=== PATIENT | female | born 1950 | race Caucasian/White ===

== ENCOUNTER 2017-10-20 12:30 | Outpatient (CLI) | payer MEDICARE, BC ==
--- NOTE | 2017-10-20 16:16 | MRI ---
LEFT KNEE MRI WITHOUT IV CONTRAST: HISTORY: A 67-year-old female with left knee pain following a fall 2 weeks ago. FINDINGS: Multiplanar, multisequence MRI examination of the left knee is performed. Scattered superficial prepatellar and superficial infrapatellar subcutaneous fat stranding. This cer tainly could be consistent with prepatellar bursitis. Focal abnormal marrow signal in the proximal a nterior tibia with an appearance certainly worrisome for focal bone contusion and probably small foca l infraction. Tricompartment cartilage loss worse involving the femoral patellar and medial compartm ents. Slightly complex tear of the medial meniscus including a horizontal component and a small flap component primarily involving the posterior horn and posterior body. Small focal free-edge tear of the body of the lateral meniscus. Arthrosis changes with prominent subchondral cystic changes of the proximal tibiofibular joint with an adjacent somewhat multilobulated cyst measuring approximately 1. 1 x 1.3 x 2 cm which is both deep to and superficial to the distal biceps femoris tendon insertion. This is most likely a ganglion or complex synovial cyst. Focal dilatation or small synovial cyst at the level of the popliteal hiatus. Anterior and posterior cruciate ligaments, collateral ligament co mplexes, and quadriceps and patellar tendons and extensor mechanism show no evidence for acute proces s. IMPRESSION: Evidence for bone contusion and probable small focal infraction involving the anterior proximal tibia epiphysis and metaphysis. Slightly complex tear of the medial meniscus. Small free-edge tear of th e body of the lateral meniscus. Some superficial prepatellar fluid concerning for a possible prepate llar bursitis. Proximal tibiofibular joint arthrosis, subchondral cystic changes, and prominent mult ilobulated synovial or ganglion cyst, both superficial and deep to the biceps femoris tendon insertio n. Other findings as above. POS: OFF
== END 2017-10-20 12:31 | disposition home or self-care (01) ==
LOC: SCSMRI 12:30
PROVIDERS: ATTEND Orthopaedic Surgery
DX: M25.562 Pain in left knee (principal); S83.232A Complex tear of medial meniscus, current injury, left knee, initial encounter; S80.02XA Contusion of left knee, initial encounter

== ENCOUNTER 2017-12-01 08:17 | Outpatient (CLI) | payer MEDICARE, BC ==
[2017-12-01 09:46] LABS: #Basophils 0.1 thou/uL (0.0-0.2); #Eosinphils 0.1 thou/uL (0.0-0.7); #Lymphocytes 2.5 thou/uL (1.20-3.40); #Monocytes 0.6 thou/uL (0.11-0.59); #Neutrophils 3.4 thou/uL (1.40-6.50); %Basophils 1.8 % (0.0-1.0); %Eosinophils 1.4 % (0.0-10.0); %Lymphocytes 37.3 % (21.0-51.0); %Monocytes 8.9 % (0.0-10.0); %Neutrophils 50.7 % (42.0-75.0); Hemoglobin 13.9 g/dL (12.0-16.0); Mean Corpuscular Hemoglobin 29.8 pg (27.0-31.0); Mean Corpuscular Volume 90.3 fl (81.0-99.0); Mean Platelet Volume 8.2 fL (7.4-10.4); Platelet Count 291 thou/uL (130-400); RBC Distribution Width 11.4 % (11.5-14.5); Red Blood Cell (RBC) Count 4.66 mill/uL (4.20-5.40); White Blood Cell (WBC) Count 6.7 thou/uL (4.8-10.8)
[2017-12-01 10:04] LABS: Anion Gap 14 mmol/L (10-20); BUN (Urea Nitrogen) 16 mg/dL (9.8-20.1); Calc. Creatinine Clearance 0 mL/min (70-130); Calcium 10.5 mg/dL (7.8-10.44); Carbon Dioxide 28 mmol/L (23-31); Chloride 104 mmol/L (98-107); Estimated GFR-MDRD 71; Glucose 91 mg/dL (80-115); Potassium 4.4 mmol/L (3.5-5.1); Sodium 142 mmol/L (136-145)
--- NOTE | 2017-12-01 17:50 | EKG ---
Test Reason : Blood Pressure : / mmHG Vent. Rate : 069 BPM Atrial Rate : 069 BPM P-R Int : 178 ms QRS Dur : 086 ms QT Int : 384 ms P-R-T Axes : 031 -07 004 degrees QTc Int : 411 ms Normal sinus rhythm Normal ECG No previous ECGs available Confirmed by SARIAH FOURNIER, DR. Mosley ([id number]) on 12/01/2017 5:50:22 PM Referred By: STARR Confirmed By:DR. Dimitri ROLLE MD
== END 2017-12-01 08:18 | disposition home or self-care (01) ==
LOC: LABBT 08:17
PROVIDERS: ATTEND Orthopaedic Surgery
DX: Z01.818 Encounter for other preprocedural examination (principal); K40.90 Unilateral inguinal hernia, without obstruction or gangrene, not specified as recurrent
CPT/HCPCS: 80048; 85025; 93005; 93010

== ENCOUNTER 2017-12-04 07:24 | Day surgery (SDC) | payer MEDICARE, BC ==
[2017-12-01 09:03] VITALS: BMI 30.4
[2017-12-04] MEDS ORDERED: Diprivan 20 ML ONE (08:17)
[2017-12-04] MEDS ORDERED: CEFAZOLIN/Water 2 GM/20 ML SYRINGE ONE (08:25)
[2017-12-04] MEDS ORDERED: Fentanyl 100 MCG/2 ML VIAL ONE (09:54)
[2017-12-04] MEDS ORDERED: Lidocaine 2% w/Epinephrine 1:200K 20 ML VIAL ONE (10:16)
[2017-12-04] MEDS ORDERED: Bupivacaine PF 0.5% 30 ML VIAL ONE (10:16)
[2017-12-04] MEDS ORDERED: Bupivacaine HCl 0.5%/Epinephrine 1:200,000/PF 30 ml Vial ONE (10:16)
[2017-12-04] MEDS ORDERED: Ondansetron HCl/PF 4 MG/2 ML Vial ONE (11:14)
[2017-12-04] MEDS ORDERED: ePHEDrine/0.9% NaCl/PF SYRINGE 50 mg/10 ml ONE (11:14)
[2017-12-04] MEDS ORDERED: Ketorolac Tromethamine 30 MG/ML VIAL ONE (11:14)
[2017-12-04] MEDS ORDERED: Propofol 200 MG/20 ML VIAL ONE (11:14)
[2017-12-04] MEDS ORDERED: Lidocaine 1% PF 5 ML VIAL ONE (11:14)
--- NOTE | 2017-12-04 12:27 | OP ---
PREOPERATIVE DIAGNOSES: Medial and lateral meniscus tear, left knee. POSTOPERATIVE DIAGNOSES: Medial and lateral meniscus tear, left knee. SURGEON: Benjamin Richardson M.D. ANESTHESIA: General. BLOOD LOSS: Minimal. SPECIMEN: None. DRAINS: None. COMPLICATIONS: None. PROCEDURE IN DETAIL: The patient was taken to the operative suite where general anesthesia was induc ed. Left leg was prepped and draped in the usual sterile fashion. She received Ancef preoperatively . The scope was placed in the lateral portal and probe was placed in the medial portal. 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 Lateral compartment had no arthritis, small degenerative tear centrally. The medial compartment had grade III chondromalacia medial femoral condyle and exte nsive tearing of the medial meniscus. The ACL was intact. NARRATIVE REPORT: Scope was placed in the lateral portal and probe was placed in medial portal. I p erformed partial medial meniscectomy using basket forceps and smoothed using a 4-0 full radius resect or. I did perform abrasion chondroplasty over unstable articular cartilage flap tears only. Meniscu s was then probed and found to be stable. Lateral compartment, a small baskets were used to debride the meniscus using a 4-0 full radius resector. Lateral meniscus probed confirmed to be stable as wel l. The knee was then drained. Sterile dressings applied. There were no complications.
== END 2017-12-04 12:40 | disposition home or self-care (01) ==
LOC: SDC 07:24 → EEVIPCON 14:30
PROVIDERS: ATTEND Orthopaedic Surgery
PROC: 0SBD4ZZ Excision of Left Knee Joint, Percutaneous Endoscopic Approach (ICD-10-PCS; principal; 2017-12-04)
PROC: 0SBD4ZZ Excision of Left Knee Joint, Percutaneous Endoscopic Approach (ICD-10-PCS; 2017-12-04)
DX: S83.282A Other tear of lateral meniscus, current injury, left knee, initial encounter (principal); S83.242A Other tear of medial meniscus, current injury, left knee, initial encounter; E78.00 Pure hypercholesterolemia, unspecified; Z79.82 Long term (current) use of aspirin; Z79.84 Long term (current) use of oral hypoglycemic drugs; Z79.899 Other long term (current) drug therapy; Z83.3 Family history of diabetes mellitus; Z90.710 Acquired absence of both cervix and uterus; Z90.89 Acquired absence of other organs; Z98.1 Arthrodesis status; Z98.890 Other specified postprocedural states
CPT/HCPCS: 29880; 97116; 97139; G8978; G8979; G8980; J0670; J1885; J2001; J2405; J2704; J3010; S0020

== ENCOUNTER 2017-12-15 09:50 | Outpatient (CLI) | payer MEDICARE, BC | END 2017-12-15 09:51 | disposition home or self-care (01) | LOC: BICMAMMO 09:50 | PROVIDERS: ATTEND Internal Medicine | DX: Z12.31 Encounter for screening mammogram for malignant neoplasm of breast (principal) | CPT/HCPCS: 77063; 77067 ==

== ENCOUNTER 2018-03-14 16:02 | Emergency (ER) | payer MEDICARE, BC ==
[2018-03-14] MEDS ORDERED: Bacitracin Zinc 1 Packet ONE (16:14)
--- NOTE | 2018-03-14 17:29 | RAD ---
LEFT KNEE FOUR VIEWS: 03/14/18 HISTORY: Fall, left knee pain. FINDINGS/IMPRESSION: Degenerative changes are present. No acute fracture or dislocation is identified. POS: [facility]
--- NOTE | 2018-03-14 17:30 | RAD ---
LEFT ANKLE THREE VIEWS 03/14/18 HISTORY: Fall, left ankle pain. FINDINGS/IMPRESSION: The ankle mortise is maintained. No acute fracture or dislocation is identified. A posterior calcane al spur is present. POS: [facility]
--- NOTE | 2018-03-14 18:13 | RAD ---
RIGHT KNEE FOUR VIEWS: 03/14/18 HISTORY: Fall. Right knee pain. FINDINGS/IMPRESSION: There is a nondisplaced fracture involving the head of the fibula. An enthesophyte is seen arising fr om the anterior superior aspect of the patella. POS: [facility]
== END 2018-03-14 17:55 | disposition home or self-care (01) ==
LOC: SCSER 16:02
DX: S52.124A Nondisplaced fracture of head of right radius, initial encounter for closed fracture (principal); Z79.84 Long term (current) use of oral hypoglycemic drugs; Z79.899 Other long term (current) drug therapy; E78.00 Pure hypercholesterolemia, unspecified; R73.03 Prediabetes; W10.9XXA Fall (on) (from) unspecified stairs and steps, initial encounter

== ENCOUNTER 2018-12-16 07:57 | Outpatient (CLI) | payer MEDICARE, BC | END 2018-12-16 07:58 | disposition home or self-care (01) | LOC: BICMAMMO 07:57 | PROVIDERS: ATTEND Internal Medicine | DX: Z12.31 Encounter for screening mammogram for malignant neoplasm of breast (principal) | CPT/HCPCS: 77063; 77067 ==

== ENCOUNTER 2019-12-17 07:59 | Outpatient (CLI) | payer MEDICARE, BC ==
--- NOTE | 2019-12-17 08:38 | MMO ---
Bilateral MAMMO Bilat Screen [facility]. CLINICAL HISTORY: Patient is 69 years old and is seen for screening. The patient has no family history of breast cancer. The patient has no personal history of cancer. VIEWS: The views performed were: bilateral craniocaudal with tomosynthesis and bilateral mediolateral oblique with tomosynthesis. FILMS COMPARED: The present examination has been compared to prior imaging studies performed at [facility] on 12/15/2017 and 12/16/2018, and at [facility] on 12/15/2015 and 11/19/2016. This study has been interpreted with the assistance of computer-aided detection. MAMMOGRAM FINDINGS: The breasts are heterogeneously dense, which could obscure a lesion on mammography. There are stable benign appearing calcifications seen in both breasts. There are no suspicious masses, suspicious calcifications, or new areas of architectural distortion. IMPRESSION: THERE IS NO MAMMOGRAPHIC EVIDENCE OF MALIGNANCY. A ROUTINE FOLLOW-UP MAMMOGRAM IN 1 YEAR IS RECOMMENDED. THE RESULTS OF THIS EXAM WERE SENT TO THE PATIENT. ACR BI-RADS Category 2 - Benign finding MAMMOGRAPHY NOTE: 1. A negative mammogram report should not delay a biopsy if a dominant of clinically suspicious mass is present. 2. Approximately 10% to 15% of breast cancers are not detected by mammography. 3. Adenosis and dense breasts may obscure an underlying neoplasm. Reported by: ИВАН SNYDER MD Electonically Signed: [id number]
== END 2019-12-17 08:00 | disposition home or self-care (01) ==
LOC: BICMAMMO 07:59
PROVIDERS: ATTEND Internal Medicine
DX: Z12.31 Encounter for screening mammogram for malignant neoplasm of breast (principal)
CPT/HCPCS: 77063; 77067

== ENCOUNTER 2020-12-19 08:34 | Outpatient (CLI) | payer MEDICARE, BC ==
--- NOTE | 2020-12-19 09:47 | MMO ---
Bilateral MAMMO Bilat Screen [facility]. CLINICAL HISTORY: Patient is 70 years old and is seen for screening. The patient has no family history of breast cancer. The patient has no personal history of cancer. VIEWS: The views performed were: bilateral craniocaudal with tomosynthesis and bilateral mediolateral oblique with tomosynthesis. FILMS COMPARED: The present examination has been compared to prior imaging studies performed at [facility] on 12/15/2017, 12/16/2018 and 12/17/2019, and at [facility] on 11/19/2016. This study has been interpreted with the assistance of computer-aided detection. MAMMOGRAM FINDINGS: The breasts are heterogeneously dense, which could obscure a lesion on mammography. There are no suspicious masses, suspicious calcifications, or new areas of architectural distortion. IMPRESSION: THERE IS NO MAMMOGRAPHIC EVIDENCE OF MALIGNANCY. A ROUTINE FOLLOW-UP MAMMOGRAM IN 1 YEAR IS RECOMMENDED. THE RESULTS OF THIS EXAM WERE SENT TO THE PATIENT. ACR BI-RADS Category 1 - Negative MAMMOGRAPHY NOTE: 1. A negative mammogram report should not delay a biopsy if a dominant of clinically suspicious mass is present. 2. Approximately 10% to 15% of breast cancers are not detected by mammography. 3. Adenosis and dense breasts may obscure an underlying neoplasm. Reported by: CHAYO ELIZABETH MD Electonically Signed: [id number]
== END 2020-12-19 08:35 | disposition home or self-care (01) ==
LOC: BICMAMMO 08:34
PROVIDERS: ATTEND Internal Medicine
DX: Z12.31 Encounter for screening mammogram for malignant neoplasm of breast (principal)
CPT/HCPCS: 77063; 77067

== ENCOUNTER 2023-01-13 08:54 | Outpatient (CLI) | payer MEDICARE | END 2023-01-13 08:55 | disposition home or self-care (01) | LOC: BICMAMMO 08:54 | PROVIDERS: ATTEND Internal Medicine | DX: Z12.31 Encounter for screening mammogram for malignant neoplasm of breast (principal) | CPT/HCPCS: 77063; 77067 ==

== ENCOUNTER 2023-04-29 13:50 | Outpatient (CLI) | payer MEDICARE | END 2023-04-29 13:51 | disposition home or self-care (01) | LOC: SCSMRI 13:50 | PROVIDERS: ATTEND Surgery | DX: G62.9 Polyneuropathy, unspecified (principal) | CPT/HCPCS: 72197 ==

== ENCOUNTER 2024-01-19 08:04 | Outpatient (CLI) | payer MEDICARE | END 2024-01-19 08:05 | disposition home or self-care (01) | LOC: BICMAMMO 08:04 | PROVIDERS: ATTEND Family Medicine | DX: Z12.31 Encounter for screening mammogram for malignant neoplasm of breast (principal) | CPT/HCPCS: 77063; 77067 ==

== ENCOUNTER 2024-12-30 11:37 | Outpatient (CLI) | payer MEDICARE | END 2024-12-30 11:38 | disposition home or self-care (01) | LOC: BICRAD 11:37 | PROVIDERS: ATTEND Family Medicine | DX: R05.3 Chronic cough (principal) | CPT/HCPCS: 71046 ==

== ENCOUNTER 2025-09-19 07:49 | Outpatient (CLI) | payer MEDICARE | END 2025-09-19 07:50 | disposition home or self-care (01) | LOC: BICMAMMO 07:49 | PROVIDERS: ATTEND Internal Medicine Endocrinology, Diabetes & Metabolism | DX: M85.89 Other specified disorders of bone density and structure, multiple sites (principal) | CPT/HCPCS: 77080 ==